=== PATIENT | female | born 1980 | race Two or more races ===

== ENCOUNTER 2016-11-21 10:43 | Emergency (ER) | payer MEDICAID ==
[~2016-11-21 10:43] MED LIST: MOTRIN800 MG PO
[2016-11-21] MEDS ORDERED: NO HOME MEDICATION XX (10:55)
[2016-11-21 11:37] LABS: BASO % 0.3 % (0-2); EOS % 2.3 % (0-7); EOSINOPHIL ABSOLUTE COUNT 0.2 tho/cmm (0.0-0.7); HGB-HEMOGLOBIN 10.4 gm/dl (12.0-15.5); IMMATURE GRANULOCYTES ABSOLUTE 0.03 tho/cmm (0-0.03); IMMATURE GRANULOCYTES PERCENT 0.3 % (0-0.3); LYMPH % 22.5 % (20-45); LYMPH ABSOLUTE COUNT 2.3 tho/cmm (0.8-4.5); MCHC MEAN CORPUSCULAR HGB CONC 30.6 % (32.0-36.0); MCV (MEAN CELL VOLUME) 75.2 fl (82.0-96.0); MEAN PLATELET VOLUME 9.8 cmc (9.4-12.4); MONO % 6.3 % (0-12); MONOCYTE ABSOLUTE COUNT 0.6 tho/cmm (0.0-1.2); NEUTROPHILS % 68.3 % (40-80); PLATELET COUNT 248 tho/cmm (150-450); RED BLOOD COUNT 4.52 mil/cmm (4.00-5.20); RED CELL DISTRIBUTION WIDTH 17.6 % (12.4-16.4); WHITE BLOOD COUNT 10.2 tho/cmm (4.0-10.0)
[2016-11-21 11:47] LABS: ANION GAP 10 mmol/L (0-20); BLOOD UREA NITROGEN 4 mg/dl (6-24); CALCIUM 7.9 mg/dl (8.5-10.5); CARBON DIOXIDE-VENOUS 28 mmol/L (22-32); CHLORIDE 108 mmol/l (96-110); CREATININE 0.66 mg/dl (0.50-1.10); GLUCOSE 102 mg/dL (70-110); POTASSIUM 3.8 mmol/L (3.7-5.1); SODIUM 142 mmol/L (135-145); eGFR VALUE FOR BLACK >90 mL/Min
[2016-11-21 11:51] LABS: URINE APPEARANCE HAZY; URINE BILIRUBIN NEGATIVE (NEG); URINE BLOOD LARGE (NEG); URINE COLOR YELLOW; URINE GLUCOSE (UA) NEGATIVE (NEG); URINE KETONE NEGATIVE (NEG); URINE LEUKOCYTE ESTERASE POSITIVE (NEG); URINE NITRITE NEGATIVE (NEG); URINE PROTEIN NEGATIVE (NEG); URINE SPECIFIC GRAVITY 1.015 (1.003-1.030)
[2016-11-21 11:59] LABS: URINE EPITHELIAL CELLS 0-5 /[HPF] (0-10)
[2016-11-21 12:00] LABS: URINE BACTERIA 1+; URINE RBC 20-35 /[HPF] (0-5); URINE WBC RARE /[HPF] (0-5)
== END 2016-11-21 13:42 ==
LOC: EDMED 10:43
PROVIDERS: Physician Assistant
DX: O20.0 Threatened abortion (principal)